=== PATIENT | male | born 1985 | race American Indian/Alaskan Native ===

== ENCOUNTER 2020-06-20 10:18 | Emergency (ER) | payer SELFPAY ==
[2020-06-20 10:46] VITALS: BP 144/65
--- NOTE | 2020-06-20 11:33 | Emergency Department Report ---
Minor Respiratory - HPI Chief Complaint: Upper Respiratory Infection Stated Complaint: THROAT PAIN Time Seen by Provider: 06/20/20 11:28 Duration: 3 Days Pain Location: Throat Severity: mild Minor Respiratory: Yes Sore Throat, Yes Able to Tolerate Fluids, Yes Cough, No Rhinorrhea, No Ear Pain, No Sick Contacts, No Hemoptysis, No Chest Pain, No Shortness of Breath, No Fever Other History: 3 DAY HX SORE THROAT. ABC INTACT. VSS. NO HYPOXIA. NO NON ILL. NO FEVER. TAKING PO. ED Review of Systems ROS: Stated complaint: THROAT PAIN Other details as noted in HPI Comment: All other systems reviewed and negative ED Past Medical Hx - Past Medical History Previous Medical History?: No - Surgical History Past Surgical History?: No - Family History Family history: no significant - Social History Smoking Status: Never Smoker - Medications Home Medications: Home Medications Medication Instructions Recorded Confirmed Last Taken Type Amoxicillin [Trimox CAP] 500 mg PO BID #20 capsule 06/20/20 Unknown Rx Minor Respiratory Exam - Exam General: Vital signs noted. No distress. Alert and acting appropriately. HEENT: Yes Pharyngeal Erythema, Yes Pharyngeal Exudates, Yes Moist Mucous Membranes, No Rhinorrhea, No Conjuctival Injection, No Frontal Tenderness, No Maxillary Tenderness Ear: Neither TM Bulge, Neither TM Erythema, Neither EAC Pain, Neither EAC Discharge Neck: Yes Supple, No Adenopathy Lungs: Yes Good Air Exchange, No Wheezes, No Ronchi, No Stridor, No Cough, No Labored Respirations, No Retractions, No Use of Accessory Muscles, No Other Abnormal Lung Sounds Heart: Yes Regular, No Murmur Abdomen: Yes Normal Bowel Sounds, No Tenderness, No Peritoneal Signs Skin: No Rash, No Edema Neurologic: Alert and oriented, no deficits. Musculoskeletal: Unremarkable. ED Course Vital Signs 06/20/20 10:43 Temperature 98.4 F Pulse Rate 72 Respiratory 20 Rate Blood Pressure 144/65 O2 Sat by Pulse 98 Oximetry ED Medical Decision Making - Medical Decision Making SORE THROAT ABC INTACT VSS NO FEVER MILD COUGH NO SOB CONTROLLING SECRETIONS EXUDATE RIGHT DC HOME WITH RX AND PCP FOLLOW UP Vital Signs 06/20/20 10:43 Temperature 98.4 F Pulse Rate 72 Respiratory 20 Rate Blood Pressure 144/65 O2 Sat by Pulse 98 Oximetry - Differential Diagnosis EXUDATIVE PHARYN Critical care attestation.: If time is entered above; I have spent that time in minutes in the direct care of this critically ill patient, excluding procedure time. ED Disposition Clinical Impression: Exudative pharyngitis Disposition: DC-01 TO HOME OR SELFCARE Is pt being admited?: No Does the pt Need Aspirin: No Condition: Stable Instructions: Pharyngitis (ED) Additional Instructions: HYDRATE WELL WITH WATER MOTRIN OR TYLENOL FOR PAIN OR FEVER DIET TOLERATE FOLLOW UP WITH PCP REFERRAL BELOW IF YOU WANT OFFICIAL COVID TEST GOOGLE SEARCH NEAR YOUR HOME MED ORDERED TODAY SELF ISOLATION FOR 10 DAYS Prescriptions: Amoxicillin [Trimox CAP] 500 mg PO BID #20 capsule Referrals: MATHEW DOWELL MD [Staff Physician] - 3-5 Days Time of Disposition: 11:31
== END 2020-06-20 15:18 | disposition home or self-care (01) ==
LOC: ED 10:18
DX: J02.9 Acute pharyngitis, unspecified (principal); Z79.899 Other long term (current) drug therapy
CPT/HCPCS: 99282

== ENCOUNTER 2022-03-10 12:25 | Emergency (ER) | payer SELFPAY ==
--- NOTE | 2022-03-10 13:16 | XRay Report ---
LEFT ANKLE 3 VIEW(S) INDICATION / CLINICAL INFORMATION: left ankle injury COMPARISON: None available. FINDINGS: BONES / JOINT(S): No acute fracture or subluxation. No significant arthritis. SOFT TISSUES: No significant abnormality. ADDITIONAL FINDINGS: None. Signer Name: Grupo Montalvo MD Signed: 03/10/2022 1:11 PM Workstation Name: [id number]
[2022-03-10] MEDS ORDERED: KETOROLAC 10 MG TAB PO ONE (13:52)
--- NOTE | 2022-03-10 13:57 | Emergency Department Report ---
ED Lower Extremity HPI - General Chief Complaint: Extremity Injury, Lower Stated Complaint: ANKLE PAIN Time Seen by Provider: 03/10/22 13:28 Source: patient Mode of arrival: Ambulatory Limitations: No Limitations - History of Present Illness Initial Comments: 36-year-old black male presents to the emergency department for evaluation of left ankle pain. He states that he fell and twisted his ankle this a.m. and has had persistent pain since then. He states pain is 9 out of 10 and worse when he ambulates. Complaint: ankle injury -: Sudden, hour(s) Injury: Ankle: Left Place: home Severity: severe Severity scale (0 -10): 10 Worsens With: weight bearing Context: walking Associated Symptoms: able to partially bear weight. denies: snap/pop sensation, swelling, numbness, tingling, unable to bear weight - Related Data Previous Rx's Medication Instructions Recorded Last Taken Type Naproxen [Naprosyn] 500 mg PO BID #14 tab 03/10/22 Unknown Rx Allergies Allergy/AdvReac Type Severity Reaction Status Date / Time No Known Allergies Allergy Unverified 03/10/22 12:31 ED Review of Systems ROS: Stated complaint: ANKLE PAIN Other details as noted in HPI Comment: All other systems reviewed and negative Constitutional: denies: chills, fever Respiratory: denies: shortness of breath Cardiovascular: denies: chest pain, palpitations Gastrointestinal: denies: abdominal pain, nausea, vomiting Musculoskeletal: denies: back pain Skin: denies: rash, lesions Neurological: denies: headache, weakness, numbness, paresthesias, confusion, abnormal gait ED Past Medical Hx - Social History Smoking Status: Never Smoker - Medications Home Medications: Home Medications Medication Instructions Recorded Confirmed Last Taken Type Naproxen [Naprosyn] 500 mg PO BID #14 tab 03/10/22 Unknown Rx ED Physical Exam - General Limitations: No Limitations General appearance: alert, in no apparent distress - Head Head exam: Present: atraumatic, normocephalic - Eye Eye exam: Present: normal appearance. Absent: conjunctival injection - Neck Neck exam: Present: normal inspection. Absent: tenderness - Respiratory Respiratory exam: Absent: respiratory distress - Cardiovascular Cardiovascular Exam: Present: tachycardia - GI/Abdominal GI/Abdominal exam: Absent: distended - Expanded Lower Extremity Exam Left Lower Leg exam: Present: normal inspection Ankle exam: Present: normal inspection, tenderness. Absent: full ROM, dislocation, erythema Foot/Toe exam: Present: normal inspection Neuro vascular tendon exam: Present: no vascular compromise. Absent: pulse deficit, abnormal cap refill, motor deficit, sensory deficit, tendon deficit, extremity cold to touch, pallor Gait: Positive: observed and limited by pain - Back Exam Back exam: Present: normal inspection. Absent: tenderness - Neurological Exam Neurological exam: Present: alert, oriented X3 - Psychiatric Psychiatric exam: Present: normal affect, normal mood - Skin Skin exam: Present: warm, dry, intact, normal color ED Course Vital Signs 03/10/22 03/10/22 03/10/22 12:32 14:02 14:10 Temperature 98.7 F Pulse Rate 107 H 88 Respiratory 18 18 20 Rate Blood Pressure 146/75 Blood Pressure 128/78 [Left] O2 Sat by Pulse 98 100 Oximetry ED Lower Extremity MDM - Radiology Data Radiology results: report reviewed, image reviewed Left ankle x-ray: FINDINGS: BONES / JOINT(S): No acute fracture or subluxation. No significant arthritis. SOFT TISSUES: No significant abnormality. ADDITIONAL FINDINGS: None. - Medical Decision Making 36-year-old black male presents to the emergency department for evaluation of left ankle pain. He states that he fell and twisted his ankle this a.m. and has had persistent pain since then. He states pain is 9 out of 10 and worse when he ambulates. X-ray without any acute abnormalities noted. Velcro ankle stirrup splint placed to ankle for support and patient will be discharged home with naproxen to take for 7 days twice a day and advised to follow-up with orthopedics if no improvement or worsening symptoms. He is advised to return to the emergency department for any concerning signs and symptoms. He verbalized understanding of and agreement with plan of care. Critical care attestation.: If time is entered above; I have spent that time in minutes in the direct care of this critically ill patient, excluding procedure time. ED Disposition Clinical Impression: Left ankle pain Qualifiers: Chronicity: acute Qualified Code(s): M25.572 - Pain in left ankle and joints of left foot Disposition: HOME / SELF CARE / HOMELESS Is pt being admited?: No Does the pt Need Aspirin: No Condition: Stable Instructions: RICE Therapy for Routine Care of Injuries, [id number], How to Use Cold Therapy, [id number], Musculoskeletal Pain Additional Instructions: Take medications as prescribed. Follow-up with orthopedics or primary care provider if no improvement or worsening symptoms in the next 7 to 10 days. Return to the emergency department as needed. Prescriptions: Naproxen [Naprosyn] 500 mg PO BID #14 tab Referrals: KAVITHA LOPEZ MD [Referring] - 3-5 Days ALEJANDRO WATSON MD [Staff Physician] - 3-5 Days Forms: Work/School Release Form(ED) Time of Disposition: 13:56
[2022-03-10 14:11] VITALS: BP 128/78
== END 2022-03-10 14:26 | disposition home or self-care (01) ==
LOC: ED 12:25
DX: M25.572 Pain in left ankle and joints of left foot (principal); Z79.899 Other long term (current) drug therapy
CPT/HCPCS: 99283

== ENCOUNTER 2022-03-17 09:00 | Emergency (ER) | payer SELFPAY ==
--- NOTE | 2022-03-17 09:10 | Emergency Department Report ---
Blank Doc - Documentation Documentation: 36-year-old male that presents with abdominal pain, nausea vomiting and consis tent hiccups. History of GERD. 1- This is a initial triage assessment/medical screening only. Full assessment and work-up will be completed once the patient is in proper hospital gown, ED bed and in a private room setting. This initial assessment/diagnostic orders/clinical plan/ treatment(s) is/are subject to change based on pt's health status, clinical progression and re-assessment by fellow clinical providers in the ED. Further treatment and workup at subsequent clinical providers discretion. Patient/guardians urged not to elope from ED as their condition may be serious if not clinically assessed and managed. 2-labs 3-UA The patient was evaluated in the emergency department for symptoms described in the history of present illness. He/she was evaluated in the context of the global COVID-19 pandemic, which necessitated consideration that the patient might be at risk for infection with the virus that causes COVID-19. Institutional protocols and algorithms that pertain to the evaluation of patients at risk for COVID-19 are in a state of rapid change based on information released by regulatory bodies including the CDC and federal and state organizations. These policies and algorithms were followed during the patient's care in the emergency department. Please note that these policies, procedures and recommendations changed on a rapid basis.
[2022-03-17 09:19] VITALS: BP 125/74
[2022-03-17 10:22] LABS: Basophils % (Auto) 0.5 % (0.0-1.8); Eosinophils # (Auto) 0.1 K/mm3 (0.0-0.4); Eosinophils % (Auto) 1.9 % (0.0-4.3); Hematocrit 45.5 % (35.5-45.6); Hemoglobin 15.5 gm/dl (11.8-15.2); Lymphocytes # (Auto) 1.2 K/mm3 (1.2-5.4); Lymphocytes % (Auto) 24.4 % (13.4-35.0); Mean Corpuscular HGB Conc 34 % (32-34); Mean Corpuscular Volume 85 fl (84-94); Monocytes # (Auto) 0.6 K/mm3 (0.0-0.8); Monocytes % (Auto) 11.1 % (0.0-7.3); Platelet Count 275 K/mm3 (140-440); Red Blood Count 5.38 M/mm3 (3.65-5.03); Red Cell Distribution Width 12.9 % (13.2-15.2)
[2022-03-17 10:31] LABS: Alanine Aminotransferase 17 units/L (7-56); Albumin 4.3 g/dL (3.9-5); BUN/Creatinine Ratio 10; Blood Urea Nitrogen 13 mg/dL (9-20); Calcium 9.6 mg/dL (8.4-10.2); Hemolysis Index 13
[2022-03-17] MEDS ORDERED: KETOROLAC 10 MG TAB PO ONE (17:00)
[2022-03-17 17:07] LABS: Amorphous Crystals,Urine Few; Bilirubin,Urine NEG (Negative); Blood,Urine NEG (Negative); Color,Urine Yellow (Yellow); Mucus,Urine FEW /HPF
[2022-03-17] MEDS ORDERED: ALUM-MAG HYDROXIDE-SIMETHICONE 200-200-20MG/5ML ORAL LIQD 30 ML PO ONE (17:37)
[2022-03-17] MEDS ORDERED: LIDOCAINE VISCOUS 2% 15 ML ORAL LIQD PO ONE (17:37)
--- NOTE | 2022-03-17 18:49 | Emergency Department Report ---
ED Abdominal Pain HPI - General Chief Complaint: Abdominal Pain Stated Complaint: NAUSEA/VOMITING/THROAT PAIN Time Seen by Provider: 03/17/22 09:09 Source: patient Mode of arrival: Ambulatory Limitations: No Limitations - History of Present Illness Initial Comments: L lower abd pain with worsening acid reflux , some sore thorat no fever no rash MD Complaint: abdominal pain -: days(s) Location: LLQ Radiation: none Severity scale (0 -10): 3 Quality: aching Consistency: intermittent Improves With: nothing Associated Symptoms: denies: denies other symptoms - Related Data Previous Rx's Medication Instructions Recorded Last Taken Type Naproxen [Naprosyn] 500 mg PO BID #14 tab 03/10/22 Unknown Rx Famotidine [Pepcid] 20 mg PO BID #20 tablet 03/17/22 Unknown Rx cephALEXin [Keflex] 500 mg PO Q12HR #14 cap 03/17/22 Unknown Rx Allergies Allergy/AdvReac Type Severity Reaction Status Date / Time No Known Allergies Allergy Unverified 03/10/22 12:31 ED Review of Systems ROS: Stated complaint: NAUSEA/VOMITING/THROAT PAIN Other details as noted in HPI Constitutional: denies: chills, fever Eyes: denies: eye pain, eye discharge, vision change ENT: denies: ear pain, throat pain Respiratory: denies: cough, shortness of breath, wheezing Cardiovascular: denies: chest pain, palpitations Endocrine: no symptoms reported Gastrointestinal: denies: abdominal pain, nausea, diarrhea Genitourinary: denies: urgency, dysuria Musculoskeletal: denies: back pain, joint swelling, arthralgia Skin: denies: rash, lesions Neurological: denies: headache, weakness, paresthesias Psychiatric: denies: anxiety, depression Hematological/Lymphatic: denies: easy bleeding, easy bruising ED Past Medical Hx - Past Medical History Previous Medical History?: No Hx Hypertension: No Hx CVA: No - Social History Smoking Status: Never Smoker - Medications Home Medications: Home Medications Medication Instructions Recorded Confirmed Last Taken Type Naproxen [Naprosyn] 500 mg PO BID #14 tab 03/10/22 Unknown Rx Famotidine [Pepcid] 20 mg PO BID #20 tablet 03/17/22 Unknown Rx cephALEXin [Keflex] 500 mg PO Q12HR #14 cap 03/17/22 Unknown Rx ED Physical Exam - General Limitations: No Limitations General appearance: alert, in no apparent distress - Head Head exam: Present: atraumatic, normocephalic - Eye Eye exam: Present: normal appearance - ENT ENT exam: Present: mucous membranes moist - Neck Neck exam: Present: normal inspection - Respiratory Respiratory exam: Present: normal lung sounds bilaterally. Absent: respiratory distress - Cardiovascular Cardiovascular Exam: Present: regular rate, normal rhythm. Absent: systolic murmur, diastolic murmur, rubs, gallop - GI/Abdominal GI/Abdominal exam: Present: soft, normal bowel sounds - Rectal Rectal exam: Present: deferred - Extremities Exam Extremities exam: Present: normal inspection - Back Exam Back exam: Present: normal inspection - Neurological Exam Neurological exam: Present: alert, oriented X3 - Psychiatric Psychiatric exam: Present: normal affect, normal mood - Skin Skin exam: Present: warm, dry, intact, normal color. Absent: rash ED Course Vital Signs 03/17/22 09:17 Temperature 98.6 F Pulse Rate 78 Respiratory 18 Rate Blood Pressure 125/74 [Right] ED Medical Decision Making - Lab Data Result diagrams: 03/17/22 09:41 03/17/22 09:41 Critical care attestation.: If time is entered above; I have spent that time in minutes in the direct care of this critically ill patient, excluding procedure time. ED Disposition Clinical Impression: GERD (gastroesophageal reflux disease), Pharyngitis Disposition: HOME / SELF CARE / HOMELESS Is pt being admited?: No Does the pt Need Aspirin: No Condition: Stable Instructions: Esophagitis, Indigestion, [id number] Prescriptions: cephALEXin [Keflex] 500 mg PO Q12HR #14 cap Famotidine [Pepcid] 20 mg PO BID #20 tablet Referrals: MATHEW DOWELL MD [Primary Care Provider] - 3-5 Days
--- NOTE | 2022-03-19 10:20 | Electrocardiograph Report ---
[facility] Test Date: 2022-03-17 Test Time: 22:52:20 Pat Name: LISY MERRITT Department: Room: Gender: M Production Foreman: : 1985 Requested By: ETHAN GRANGER Order Number: [id number] Reading MD: Bartolo Barillas Measurements Intervals [place] Rate: 91 P: 35 WA: 155 QRS: 21 QRSD: 72 T: 61 QT: 375 QTc: 462 Interpretive Statements Sinus rhythm Probable left atrial enlargement Left ventricular hypertrophy No previous ECG available for comparison Electronically Signed On 03-19-2022 10:19:16 EDT by Bartolo Barillas
== END 2022-03-17 19:40 | disposition home or self-care (01) ==
LOC: ED 09:00
DX: K21.9 Gastro-esophageal reflux disease without esophagitis (principal); J02.9 Acute pharyngitis, unspecified
CPT/HCPCS: 36415; 80053; 81001; 83690; 85025; 93005; 99283

== ENCOUNTER 2022-03-22 11:20 | Emergency (ER) | payer SELFPAY ==
--- NOTE | 2022-03-22 14:50 | Emergency Department Report ---
ED General Adult HPI - General Chief complaint: Sore Throat Stated complaint: MIGRAINE HBP SOAR THROAT Time Seen by Provider: 03/22/22 14:38 Source: patient Mode of arrival: Ambulatory Limitations: No Limitations - History of Present Illness Initial comments: 36-year-old -[place] male presents to the emergency room complaining of sore throat and states that he has acid reflux and it makes it hard for him to swallow. Patient was seen here on 03/17/2020 for the same complaint and was given Keflex for pharyngitis and famotidine for acid reflux. Patient was referred to your primary care provider which she has not followed up with. Patient has stable vital signs. He is afebrile. Patient is able to talk in complete sentences in no respiratory distress. Onset/Timin -: week(s) Improves with: none Worsens with: none Associated Symptoms: shortness of breath (When he lies down and gets up in the morning). denies: fever/chills, nausea/vomiting Treatments Prior to Arrival: none - Related Data Previous Rx's Medication Instructions Recorded Last Taken Type Naproxen [Naprosyn] 500 mg PO BID #14 tab 03/10/22 Unknown Rx Famotidine [Pepcid] 20 mg PO BID #20 tablet 03/17/22 Unknown Rx cephALEXin [Keflex] 500 mg PO Q12HR #14 cap 03/17/22 Unknown Rx Allergies Allergy/AdvReac Type Severity Reaction Status Date / Time No Known Allergies Allergy Unverified 03/10/22 12:31 ED Review of Systems ROS: Stated complaint: MIGRAINE HBP SOAR THROAT Other details as noted in HPI Comment: All other systems reviewed and negative ED Past Medical Hx - Past Medical History Hx Hypertension: No Hx CVA: No - Social History Smoking Status: Never Smoker - Medications Home Medications: Home Medications Medication Instructions Recorded Confirmed Last Taken Type Naproxen [Naprosyn] 500 mg PO BID #14 tab 03/10/22 Unknown Rx Famotidine [Pepcid] 20 mg PO BID #20 tablet 03/17/22 Unknown Rx cephALEXin [Keflex] 500 mg PO Q12HR #14 cap 03/17/22 Unknown Rx ED Physical Exam - General Limitations: No Limitations General appearance: alert, in no apparent distress - Head Head exam: Present: atraumatic, normocephalic - Eye Eye exam: Present: normal appearance - ENT ENT exam: Present: mucous membranes moist, TM's normal bilaterally - Neck Neck exam: Present: normal inspection - Respiratory Respiratory exam: Present: normal lung sounds bilaterally. Absent: respiratory distress - Cardiovascular Cardiovascular Exam: Present: regular rate, normal rhythm. Absent: systolic murmur, diastolic murmur, rubs, gallop - GI/Abdominal GI/Abdominal exam: Present: soft, normal bowel sounds. Absent: distended, tenderness, guarding - Rectal Rectal exam: Present: deferred - Extremities Exam Extremities exam: Present: normal inspection - Back Exam Back exam: Present: normal inspection - Neurological Exam Neurological exam: Present: alert, oriented X3, normal gait - Psychiatric Psychiatric exam: Present: normal affect, normal mood - Skin Skin exam: Present: warm, dry, intact, normal color. Absent: rash ED Course Vital Signs 03/22/22 12:05 Temperature 98.8 F Pulse Rate 101 H Respiratory 18 Rate Blood Pressure 130/71 [Right] O2 Sat by Pulse 96 Oximetry ED Medical Decision Making - Medical Decision Making 36-year-old -[place] male presents to the emergency room complaining of sore throat and states that he has acid reflux and it makes it hard for him to swallow. Patient was seen here on 03/17/2020 for the same complaint and was given Keflex for pharyngitis and famotidine for acid reflux. Patient was referred to your primary care provider which she has not followed up with. Patient has stable vital signs. He is afebrile. Patient is able to talk in complete sentences in no respiratory distress. Patient is instructed to continue with medications as prescribed. Follow-up with a primary care provider and can follow-up with a GI specialist. Avoid smoking avoid spicy foods eating and lying down. Avoid alcohol use. Critical care attestation.: If time is entered above; I have spent that time in minutes in the direct care of this critically ill patient, excluding procedure time. ED Disposition Clinical Impression: Acid reflux, Tobacco abuse counseling Disposition: HOME / SELF CARE / HOMELESS Is pt being admited?: No Does the pt Need Aspirin: No Condition: Stable Instructions: Food Choices for Gastroesophageal Reflux Disease, Adult, [id number], Heartburn, [id number] Additional Instructions: Continue with your medications as prescribed. Important to follow-up with a primary care provider and a attorney recruiter. I have listed their information below for your convenience. You can also try [id number] Pepcid. Referrals: [facility] [Provider Group] - 3-5 Days Forms: Work/School Release Form(ED) Time of Disposition: 14:50
[2022-03-22 15:41] VITALS: BP 137/76
== END 2022-03-22 15:39 | disposition home or self-care (01) ==
LOC: ED 11:20
DX: K21.9 Gastro-esophageal reflux disease without esophagitis (principal); Z79.899 Other long term (current) drug therapy
CPT/HCPCS: 99282